=== PATIENT | male | born 1950 | race Caucasian/White ===

== ENCOUNTER → 2017-04-24 | Outpatient (CLI) | payer OTHER ==
[2017-04-24 17:32] LABS: BASO % 0.3 %; BASO ABS # 0.04 K/uL (0-0.2); COMPLETE YES; EOS % 1.5 %; HEMATOCRIT 36.6 % (42-52); IG% 0.2 %; LYMPH % 11.9 %; LYMPH ABS # 1.45 K/uL (1.2-3.4); MEAN CELL VOLUME 93.6 fL (80-100); MEAN CORPUSCULAR HEMOGLOBIN 31.2 pg (25-34); MEAN CORPUSCULAR HGB CONC 33.3 g/dl (32-36); MEAN PLATELET VOLUME 8.5 fL (7.4-10.4); NEUT % 78.1 %; PLATELET COUNT 347 K/uL (130-400); RED BLOOD COUNT 3.91 M/uL (4.7-6.1); WHITE BLOOD COUNT 12.17 K/uL (4.8-10.8)
[2017-04-24 17:56] LABS: ALT/SGPT 23 U/L (12-78); AST/SGOT 16 U/L (15-37); BLOOD UREA NITROGEN 7 mg/dl (7-18); BUN/CREATININE RATIO 10.1 (10-20); CARBON DIOXIDE 29 mmol/L (21-32); CHLORIDE 102 mmol/L (98-107); CHOLESTEROL 196 mg/dl (0-200); GLUCOSE 92 mg/dl (70-99); POTASSIUM 4.3 mmol/L (3.5-5.1); SODIUM 136 mmol/L (136-145)
[2017-04-24 17:58] LABS: ALB/GLOB RATIO 0.9 (0.9-2); ALKALINE PHOSPHATASE 74 U/L (45-117); CHOLESTEROL/HDL RATIO 2.1; HDL CHOLESTEROL 92 mg/dl; LDL CHOLESTEROL CALCULATED 85 mg/dl; TRIGLYCERIDES 93 mg/dl (0-150); VERY LOW DENSITY LIPOPROT CALC 19 mg/dl
== END | disposition home or self-care (01) ==
LOC: C.LABPVFM 15:38
PROVIDERS: ATTEND Neuromusculoskeletal Medicine & OMM
DX: Z11.59 Encounter for screening for other viral diseases (principal); Z00.00 Encounter for general adult medical examination without abnormal findings

== ENCOUNTER → 2017-05-09 | Outpatient (CLI) | payer OTHER ==
--- NOTE | 2017-05-09 15:25 | DIAGNOSTIC IMAGING REPORT ---
LEFT SHOULDER 3 VIEWS CLINICAL HISTORY: Arthritis. FINDINGS: 3 views of left shoulder are obtained. No prior studies are available for comparison at the time of dictation. The skeletal structures are osteopenic. No acute fracture is seen. There is chronic posttraumatic deformity of the left humeral head. Advanced arthritic change is seen at the glenohumeral articulation with bony sclerosis, subchondral cyst formation, and significant bony overgrowth along the inferior aspect of the humeral head. Mild degenerative change is seen at the acromioclavicular joint. The overlying soft tissues are within normal limits. There is likely calcific tendinopathy. The partially imaged left upper lobe lung parenchyma appears clear. There are healed left-sided rib fractures. IMPRESSION: 1. No acute bony abnormality is seen in the left shoulder. 2. 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 Electronically signed by: Blaise Arriaza M.D. 05/09/2017 3:24 PM Dictated Date/Time: 05/09/2017 3:22 PM
== END | disposition home or self-care (01) ==
LOC: C.RADPV 14:26
PROVIDERS: ATTEND Neuromusculoskeletal Medicine & OMM
DX: M19.90 Unspecified osteoarthritis, unspecified site (principal); M25.512 Pain in left shoulder

== ENCOUNTER → 2017-06-20 | Outpatient (CLI) | payer OTHER ==
--- NOTE | 2017-06-20 14:52 | DIAGNOSTIC IMAGING REPORT ---
CHEST 2 VIEWS ROUTINE CLINICAL HISTORY: 67 years-old Male presenting with severe COPD. TECHNIQUE: AP and lateral views of the chest were obtained. COMPARISON: 06/07/2016. FINDINGS: Cardiomediastinal silhouette normal. Lungs hyperinflated. No focal infiltrate. Heterogeneous radiolucency could relate to underlying emphysema. No pleural effusion or pneumothorax. Exaggerated thoracic kyphosis. Osteopenia suggested. Upper abdomen normal. IMPRESSION: 1. Findings could be consistent with emphysema. No focal infiltrate. Electronically signed by: Benny Horton M.D. 06/20/2017 2:51 PM Dictated Date/Time: 06/20/2017 2:49 PM
== END | disposition home or self-care (01) ==
LOC: C.RAD1850 14:35
PROVIDERS: ATTEND Internal Medicine Pulmonary Disease
DX: J44.9 Chronic obstructive pulmonary disease, unspecified (principal)